=== PATIENT | female | born 1950 | race Asian ===

== ENCOUNTER 2020-08-08 09:45 | Emergency (ER) | payer OTHER, MEDICARE ==
[2020-08-08 10:01] VITALS: BMI 20.5
[2020-08-08] MEDS ORDERED: KETOROLAC TROMETHAMINE 30 MG/1 ML VIAL IM ONE (10:35)
[2020-08-08] MEDS ORDERED: KETOROLAC TROMETHAMINE 30 MG/1 ML VIAL ONE (10:45)
[2020-08-08 16:53] VITALS: BP 110/72; PULSE 78; TEMP 98.4
== END 2020-08-08 17:18 | disposition home or self-care (01) ==
LOC: JER 09:45
PROC: 3E0233Z Introduction of Anti-inflammatory into Muscle, Percutaneous Approach (ICD-10-PCS; principal; 2020-08-08)
DX: S22.41XA Multiple fractures of ribs, right side, initial encounter for closed fracture (principal); S42.91XA Fracture of right shoulder girdle, part unspecified, initial encounter for closed fracture
CPT/HCPCS: 73010-TC-FY; 73030-TC-RT-FY; 73200-TC-RT; 99285-25

== ENCOUNTER 2021-02-20 10:14 | Emergency (ER) | payer OTHER, MEDICARE ==
[2021-02-20 10:58] VITALS: BP 126/79; PULSE 66; TEMP 98.9; BMI 20.7
== END 2021-02-20 11:09 | disposition home or self-care (01) ==
LOC: JER 10:14
DX: Z20.822 Contact with and (suspected) exposure to COVID-19 (principal)
CPT/HCPCS: 99283-25; C9803; U0003; U0005